=== PATIENT | male | born 1945 | race Caucasian/White ===

== ENCOUNTER 2017-07-06 20:30 | Outpatient (CLI) | payer MEDICARE, OTHER | END 2017-07-06 20:31 | disposition home or self-care (01) | LOC: SLEEPLAB 20:30 | PROVIDERS: ATTEND Family Medicine | DX: G47.33 Obstructive sleep apnea (adult) (pediatric) (principal); I10 Essential (primary) hypertension; R06.83 Snoring; R53.83 Other fatigue | CPT/HCPCS: 95810 ==

== ENCOUNTER 2017-07-15 20:30 | Outpatient (CLI) | payer MEDICARE, OTHER | END 2017-07-15 20:31 | disposition home or self-care (01) | LOC: SLEEPLAB 20:30 | PROVIDERS: ATTEND Family Medicine | DX: G47.33 Obstructive sleep apnea (adult) (pediatric) (principal); I10 Essential (primary) hypertension; E66.9 Obesity, unspecified; Z68.33 Body mass index [BMI] 33.0-33.9, adult | CPT/HCPCS: 95811 ==

== ENCOUNTER 2019-04-24 14:19 | Outpatient (CLI) | payer MEDICARE ==
--- NOTE | 2019-04-24 17:25 | MRI ---
EXAM: RIGHT SHOULDER MRI WITHOUT IV CONTRAST: History: Right shoulder pain for years with worsening, acute pain. FINDINGS: Severe AC joint arthrosis changes are noted with some osteochondrolysis. There is some fluid and fat stranding in the subacromial bursa. Undersurface spurring of the distal clavicle as well as the later al acromion. There is associated osteochondrolysis of the AC joint. There is some heterogeneous tendi nopathy of the supraspinatus and infraspinatus tendons. Small focal area of insertional interstitial signal of the anterior supraspinatus tendon region. Several subchondral cysts are noted adjacent to t he infraspinatus tendon insertion. No complete full thickness or retracted rotator cuff tear. There i s a small focus of delamination in the chondral and tendon region. Increased signal within the intraa rticular portion of the biceps tendon, evidence for some tendinopathy. There is also tendinopathy in the subscapularis tendon near the insertion. There is some blunting and altered signal involving the superior labrum and also the posterior labrum, evidence for fraying or degenerative tear. Rotator cuf f muscles within normal limits in signal and volume. IMPRESSION: Severe AC joint arthrosis with osteochondrolysis and undersurface spurring of the lateral acromion as well as the lateral clavicle. There is some minimal fluid and fat stranding in the subacromial bursa . Evidence for tendinopathy involving the rotator cuff tendons. Blunting and some irregularity of the superior and lateral labrum having more the appearance of degenerative fraying and/or degenerative t ype tear. POS: [facility]
== END 2019-04-24 14:20 | disposition home or self-care (01) ==
LOC: SCSMRI 14:19
PROVIDERS: ATTEND Orthopaedic Surgery
DX: M25.511 Pain in right shoulder (principal); M19.011 Primary osteoarthritis, right shoulder; M67.813 Other specified disorders of tendon, right shoulder; M93.211 Osteochondritis dissecans, right shoulder; M75.91 Shoulder lesion, unspecified, right shoulder; R93.7 Abnormal findings on diagnostic imaging of other parts of musculoskeletal system

== ENCOUNTER 2021-10-27 09:19 | Outpatient (CLI) | payer MEDICARE | END 2021-10-27 09:20 | disposition home or self-care (01) | LOC: SCSRAD 09:19 | PROVIDERS: ATTEND Anesthesiology Pain Medicine | DX: M16.12 Unilateral primary osteoarthritis, left hip (principal) ==